=== PATIENT | female | born 1975 | race African-American/Black ===

== ENCOUNTER 2019-12-14 18:33 | Emergency (ER) | payer OTHER, BC ==
[~2019-12-14] VITALS: Ht 160 cm; Wt 76.0 kg
[2019-12-14 18:35] VITALS: BP 151/93
[2019-12-14] MEDS ORDERED: KETOROLAC 30MG/ML VIAL IM ONE (19:30)
== END 2019-12-14 20:13 | disposition home or self-care (01) ==
LOC: ER 18:33
DX: S46.912A Strain of unspecified muscle, fascia and tendon at shoulder and upper arm level, left arm, initial encounter (principal); S16.1XXA Strain of muscle, fascia and tendon at neck level, initial encounter; Z98.890 Other specified postprocedural states; Z88.8 Allergy status to other drugs, medicaments and biological substances; V49.88XA Car occupant (driver) (passenger) injured in other specified transport accidents, initial encounter; Y93.89 Activity, other specified; Y92.89 Other specified places as the place of occurrence of the external cause; Y99.8 Other external cause status
CPT/HCPCS: 96372; 99283; J1885